=== PATIENT | male | born 1950 | race Caucasian/White ===

== ENCOUNTER 2017-09-16 16:41 | Emergency (ER) | payer MEDICARE ==
[2017-09-16] MEDS ORDERED: Meclizine TAB* 12.5 MG PO ONE (17:27)
[2017-09-16] MEDS ORDERED: LORazepam TAB(*) 0.5 MG PO ONE (17:27)
[2017-09-16] MEDS ORDERED: LORazepam TAB(*) 1 MG PO ONE (17:39)
[2017-09-16 18:18] VITALS: BP 157/76
--- NOTE | 2017-09-16 18:39 | UC ---
Abi Carrillo Julia, scribed for Brett Pryor MD on 09/16/17 at 1705 . Dizzy HPI HPI Summary: This patient is a 67 year old M presenting to [facility] [place] with a chief complaint of gradually worsening intermittent spinning dizziness for the past 3 weeks. Patient reports intermittent rhinorrhea. Pt has headaches and ears popping with dizziness. Patient denies pain, difficulty walking, nausea, vomiting, weakness, numbness, and difficulty speaking or writing. The patient rates the dizziness 5/10 in severity. Symptoms aggravated by head rotation. Symptoms alleviated by sitting. Symptoms unchanged by gaze. Patient denies using new medications. - History Of Current Complaint Stated Complaint: DIZZY,HEADACHES Hx Obtained From: Patient Onset/Duration: Lasting Weeks Timing: Intermittent Episode Lasting Pain Intensity: 0 Pain Scale Used: 0-10 Numeric Character: Room Spinning Aggravating Factor(s): Change In Head Position Alleviating Factor(s): Lying Down - Allergies/Home Medications Allergies/Adverse Reactions: Allergies Allergy/AdvReac Type Severity Reaction Status Date / Time No Known Allergies Allergy Verified 09/16/17 17:06 Home Medications: Home Medications Aspirin TAB* [Aspirin 325 MG TAB*] 325 mg PO DAILY 09/16/17 [History Confirmed 09/16/17] Donepezil TAB* [Aricept 5 MG TAB*] 10 mg PO DAILY 09/16/17 [History Confirmed ] Lisinopril TAB* [Prinivil TAB*] 20 mg PO DAILY 09/16/17 [History Confirmed 09/16] Simvastatin 20 mg PO DAILY 09/16/17 [History Confirmed 09/16/17] Supplements* 09/16/17 [History] Vitamins* 09/16/17 [History] PMH/Surg Hx/FS Hx/Imm Hx - Additional Past Medical History Additional PMH: resting tremor and dementia - Surgical History Surgical History: Yes Surgery Procedure, Year, and Place: APPENDIX. GALLBLADDER - Family History Known Family History: Positive: Other - dementia and resting tremor - Social History Lives: With Family Review of Systems Constitutional: Negative Eyes: Negative Gastrointestinal: Negative Motor: Negative Musculoskeletal: Negative Neurological: Negative - "ear popping", Headache, Other - dizziness Is Patient Immunocompromised?: Yes All Other Systems Reviewed And Are Negative: Yes Physical Exam Triage Information Reviewed: Yes Vital Signs: Initial Vital Signs Temp 37.3 C 09/16/17 17:01 Pulse 64 09/16/17 17:01 Resp 16 09/16/17 17:01 BP 152/73 09/16/17 17:01 Pulse Ox 99 09/16/17 17:01 Vital Signs Reviewed: Yes - Additional Comments Appearance: Well-appearing, Well-nourished Skin: Warm Eyes: Normal ENT: Normal Neck: Supple, nontender, no carotid bruit bilaterally Respiratory: Clear to auscultation Cardiovascular: Normal S1, S2. No murmurs. Normal distal pulses in tibial and radial bilaterally. 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 Dizzy Course/Dx - Course Course Of Treatment: pt feels better after meds, no evidence of neurological deficit. normal gait. I have a very low suspicion for joist setter pathology for pt given benign h+p, instructed to monitor sxs at home adn to report to ED if sxs worsen or if accompanied by any neurological deficits. pt and family agrees to and understnads dc isntructions. - Differential Dx/Diagnosis Provider Diagnoses: dizziness Discharge - Discharge Plan Condition: Improved Disposition: HOME Prescriptions: Diazepam TAB(*) [Valium TAB(*)] 5 mg PO BID PRN #6 tab MDD 2 tabs PRN Reason: Dizziness Meclizine TAB* [Antivert 12.5 TAB*] 25 mg PO BID PRN #6 tab PRN Reason: Dizziness Patient Education Materials: Dizziness (ED) Referrals: Anamaria Espino MD [Primary Care Provider] - Additional Instructions: PLEASE TAKE MEDICATIONS DIRECTED PLEASE SEEK MEDICAL ATTENTION IMMEDIATELY IF YOU HAVE ANY WORSENING OR CONCERNING SYMPTOMS PLEASE MAKE AN APPOINTMENT TO BE SEEN BY YOUR PRIMARY CARE DOCTOR WITHIN 1 WEEK The documentation as recorded by the scribe, Roetzer,Lisa accurately reflects the service I personally performed and the decisions made by me, Brett Pryor MD.
== END 2017-09-16 18:26 | disposition home or self-care (01) ==
LOC: UCEAST 16:41
DX: R42 Dizziness and giddiness (principal); R25.1 Tremor, unspecified; F03.90 Unspecified dementia, unspecified severity, without behavioral disturbance, psychotic disturbance, mood disturbance, and anxiety; Z90.49 Acquired absence of other specified parts of digestive tract
CPT/HCPCS: 93005; 99212; A9270-GY; G0463